=== PATIENT | female | born 1965 | race Caucasian/White ===

== ENCOUNTER → 2017-01-06 | Day surgery (SDC) | payer OTHER ==
[~2017-01-06] VITALS: Ht 157.5 cm; Wt 50.4 kg
[~2017-01-06] MED LIST: 0.9% Sodium Chloride 1,000 ML IV PRN; DIAZ10TA PO; HYDR25TA4 PO; LISI-571 PO; Sodium Chloride LOK Flush 10 mL Syringe IV PRN; fentaNYL-PF 50 mCg/mL 2 mL Inj IVPUSH PRN
[2017-01-06 11:21] VITALS: BP 144/87; PULSE 84; O2SAT 99
--- NOTE | 2017-01-06 12:18 | PCM.ENDCOL ---
Colonoscopy Date of Service: Jan 06, 2017 Physician Fareed Jarvis MD Pre Procedure Diagnosis: Screening Post Procedure Dx & Findings: Diverticuli hemorrhoids Procedure Colonoscopy PROCEDURE IN DETAIL: Prep adequate Withdrawal time 8 minutes After unremarkable rectal examination the Olympus video colonoscope was inserted patient's anal canal and was advanced to cecum. Landmarks were identified including the ileocecal valve and appendiceal orifice. Scope was withdrawn systematically. Visualized colonic mucosa showed healthy shiny mucosa with normal healthy-appearing vasculature. In the sigmoid colon there are few small diverticula. In the rectum retroflexion was done which showed hemorrhoids. Anal canal was inspected carefully on the way out and hemorrhoids noted. Impression No family or personal history of colon cancer polyp Diverticuli Hemorrhoids Recommendation Repeat colonoscopy in 10 years Diverticular diet Presedation Assessment Risks and Benefits Informed consent was obtained from the patient after all risks and benefits including but not limited to drug reaction, infection, pain, bleeding, perforation, as well as alternatives were discussed. Patient monitoring Continuous pulse oximetry, cardiac monitoring, blood pressure monitoring, IV access, and oxygen at 2L per nasal cannula. Periprocedural Fentanyl: Fentanyl 100mcg Incrementally Midazolam: Midazolam 5mg Incrementally Complications There were no periprocedural complications identified. Post Procedure Plan Post Procedure Recommendations 1. Restrict activities today. 2. Resume normal activities in the morning. 3. Resume medications. 4. Patient informed of normal post procedure side effects as bloating, drowsiness, blood streaking in the stool. 5. average risk CRCS. If colon polyps come back as: -Hyperplastic- can repeat colonoscopy in 10 years -Tubular adenoma- repeat colonoscopy in 5 years -Tubulovillous/villous adenoma- repeat colonoscopy in 3 years -If any dysplasia- return to clinic as soon as possible 6. Please don't hesitate to call me with any questions. Fareed Jarvis MD Jan 06, 2017 12:18
[2017-01-06 12:21] VITALS: BP 99/60; PULSE 74; RESP 12; O2SAT 99
[2017-01-06 12:31] VITALS: BP 96/58; PULSE 68; RESP 12; O2SAT 97
[2017-01-06 12:34] VITALS: BP 121/72; PULSE 80; RESP 12; O2SAT 99
== END | disposition home or self-care (01) ==
LOC: END 00:35
PROVIDERS: ATTEND Internal Medicine
DX: Z12.11 Encounter for screening for malignant neoplasm of colon (principal); K57.30 Diverticulosis of large intestine without perforation or abscess without bleeding; K64.8 Other hemorrhoids; I10 Essential (primary) hypertension; R51 Headache; Z79.899 Other long term (current) drug therapy
CPT/HCPCS: G0121; G0500; J2250; J3010; J7030